=== PATIENT | female | born 1950 | race Caucasian/White ===

== ENCOUNTER 2016-09-20 13:47 | Emergency (ER) | payer OTHER ==
[~2016-09-20] VITALS: Ht 154.9 cm; Wt 55.3 kg
[2016-09-20 14:37] LABS: ADD MIUA? YES; BILIRUBIN NEGATIVE; BLOOD MODERATE; COLOR STRAW ((YELLOW)); GLUCOSE (STRIP) NEGATIVE; KETONES NEGATIVE; LEUKOCYTES NEGATIVE; NITRITE NEGATIVE; PROTEIN (STRIP) NEGATIVE; SPECIFIC GRAVITY 1.005 (1.000-1.030); UROBILINOGEN 0.2 MG/DL (0.2-1.0)
[2016-09-20 14:39] LABS: BACTERIA RARE /HPF; EPITHELIAL CELLS RARE /HPF; MUCUS NONE SEEN /LPF; RED BLOOD CELLS 0-5 /HPF (0-5); UCUL ADDED? NO; WHITE BLOOD CELLS 0-5 /HPF (0-5)
[2016-09-20 14:43] LABS: HEMATOCRIT 42.1 % (36.0-46.0); MCH 30.6 PG (29.0-34.0); MCHC 32.5 G/DL (30.0-36.0); MCV 94.2 FL (83-99); PLATELET COUNT 252 K/uL (156-360); RBC DIS.WIDTH-CV 13.3 % (11.8-14.6); RED BLOOD COUNT 4.47 M/uL (3.80-5.20)
[2016-09-20 14:51] LABS: CHLORIDE 106 mEq/L (99-109); SODIUM 138 mEq/L (136-147)
[2016-09-20 14:54] LABS: GLUCOSE 106 mg/dL (70-99)
[2016-09-20 14:55] LABS: ANION GAP 8 MEQ/L (2-14)
[2016-09-20 14:56] LABS: TOTAL BILIRUBIN 0.4 mg/dL (0.0-1.0)
[2016-09-20 14:57] LABS: ALKALINE PHOSPHATASE 65 IU/L (3-129); GFR ESTIMATE (CALCULATED) 53 mL/min/
[2016-09-20 14:58] LABS: UREA NITROGEN (BUN) 14 mg/dL (9-23)
[2016-09-20] MEDS ORDERED: NORCO 5/3251 TABLET PO (16:44)
[2016-09-20] MEDS ORDERED: MOTRIN800 MG PO (16:44)
[2016-09-20] MEDS ORDERED: FLOMAX0.4 MG PO (16:44)
[2016-09-20] MEDS ORDERED: ZOFRAN ODT4 MG PO (16:51)
[2016-09-20 17:10] VITALS: BP 156/89
== END 2016-09-20 17:15 | disposition home or self-care (01) ==
LOC: EME 13:47
DX: N20.2 Calculus of kidney with calculus of ureter (principal); N23 Unspecified renal colic
CPT/HCPCS: 74176; 80053; 81003; 85027; 99281; 99284